=== PATIENT | male | born 1970 | race Caucasian/White ===

== ENCOUNTER 2025-06-12 13:43 | Outpatient (REF) | payer BC, SELFPAY ==
[2025-06-12 16:20] LABS: HCT 47.4 % (40.0-50.0); HGB 16.1 g/dL (13.5-17.5); MCH 29.4 pg (27.0-33.0); MCHC 34.0 % (32.0-36.0); MCV 87 fL (80-95); MPV 9.8 fL (8.0-11.0); Platelet Count 201 10^3/uL (130-400); RBC 5.48 10^6/uL (4.36-5.78); RDW 11.9 % (11.8-14.1); RDW-SD 37.5 fL; WBC 4.36 10^3/uL (4.4-10.8)
[2025-06-12 16:26] LABS: Lipase 33 U/L (<53)
[2025-06-12 16:29] LABS: ALT 44 U/L (10-49); AST 36 U/L (<34); Albumin 4.5 g/dL (3.2-5.0); Alkaline Phosphatase 62 U/L (46-116); Anion Gap 9.4 mmol/L (3-11); BUN 32 mg/dL (9-23); Bilirubin, Total 0.60 mg/dL (0.2-1.2); CO2 27.6 mmol/L (20.0-31.0); Calcium 9.0 mg/dL (8.3-10.6); Chloride 108 mmol/L (98-107); Cholesterol 238 mg/dL (<200); Glucose 95 mg/dL (74-106); HDL Cholesterol 50 mg/dL (>40); Potassium 4.1 mmol/L (3.5-5.1); Sodium 145 mmol/L (136-145); Total Protein 6.6 g/dL (5.7-8.2)
== END 2025-06-12 13:44 | disposition home or self-care (01) ==
LOC: NCHCN 13:43
PROVIDERS: PCP Nurse Practitioner Family
DX: Z00.00 Encounter for general adult medical examination without abnormal findings (principal)
CPT/HCPCS: 80053; 80061; 83690; 85027